=== PATIENT | female | born 2000 | race Caucasian/White ===

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

== ENCOUNTER → 2020-01-02 | Outpatient (CLI) | payer BC ==
--- NOTE | 2020-01-02 18:29 | ECHO ---
DATE OF PROCEDURE: 01/02/2020 REFERRING INDIVIDUAL: YVONNE Dahl INDICATION: Chest pain, unspecified. HEIGHT: 5 feet 2 inches WEIGHT: 115 pounds 2D MEASUREMENTS: Ventricular septum: 0.70 cm Posterior wall: 0.91 cm Left ventricle diastole: 4.1 cm Aortic annulus: 1.8 cm Aortic root: 2.3 cm Left atrium: 2.3 cm DOPPLER MEASUREMENTS: Aortic valve velocity: 118 cm/s LVOT velocity: 108 cm/s LVOT VTI: 22.4 cm No mitral regurgitation. No mitral stenosis. Mitral E velocity: 75.7 cm/s Mitral A velocity: 50.9 cm/s Mitral deceleration time: 187 ms Trace tricuspid regurgitation. Trace pulmonic regurgitation. MITRAL ANNULAR TISSUE DOPPLER: E prime septal: 9.4 cm/s E prime lateral: 18.3 cm/s DESCRIPTION: Rhythm was sinus. Image quality was good. This was a 2D, M-mode, color flow Doppler and pulse wave Doppler examination and included mitral anular tissue Doppler. CONCLUSIONS: 1. Normal echocardiogram Doppler. 2. Normal left ventricle internal dimensions and wall thickness. 3. Normal regional left ventricular (LV) wall motion and wall thickening. Normal LV systolic function. Left ventricular ejection fraction (LVEF) 60% by visual estimate. Normal LV diastolic function. 4. No pericardial effusion.
--- NOTE | 2020-01-03 17:13 | ECGEPIP ---
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
== END ==
LOC: M CARPUL 10:40
PROVIDERS: ATTEND Nurse Practitioner Pediatrics
DX: R07.9 Chest pain, unspecified (principal)